=== PATIENT | female | born 1925 | race Caucasian/White ===

== ENCOUNTER → 2017-03-02 | Outpatient (CLI) | payer MEDICARE, OTHER | END | disposition home or self-care (01) | LOC: GMAL 10:23 | PROVIDERS: ATTEND Family Medicine | DX: D51.3 Other dietary vitamin B12 deficiency anemia (principal); E55.9 Vitamin D deficiency, unspecified ==

== ENCOUNTER → 2017-04-16 | Outpatient (CLI) | payer MEDICARE, OTHER | END | disposition home or self-care (01) | LOC: LAB.O 16:27 | PROVIDERS: ATTEND Family Medicine | DX: R35.0 Frequency of micturition (principal) ==

== ENCOUNTER → 2017-04-23 | Outpatient (CLI) | payer MEDICARE, OTHER ==
--- NOTE | 2017-04-23 11:39 | CT ---
Procedure: CT HEAD WITHOUT IV CONTRAST Exam Date: 04/23/2017 11:01 AM CDT Ordering Provider: CANDE OSPINA Clinical Indication: HEADACHE Comparison: None Technique: CT images of the head were obtained without contrast administration. Findings: There is no acute cortical infarction, hemorrhage, midline shift, mass effect, or hydrocephalus. 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 Global parenchymal volume loss is present. The calvaria and skull base are unremarkable. Paranasal sinuses and mastoid air cells are well aerated. Impression: No acute cortical infarction or hemorrhage. Senescent changes. Electronically signed by: Mikayla Clancy MD 04/23/2017 11:38 AM CDT
== END | disposition home or self-care (01) ==
LOC: CT 10:55
PROVIDERS: ATTEND Family Medicine
DX: G44.209 Tension-type headache, unspecified, not intractable (principal)

== ENCOUNTER → 2017-05-11 | Outpatient (CLI) | payer MEDICARE, OTHER | END | disposition home or self-care (01) | LOC: GMAL 14:26 | PROVIDERS: ATTEND Family Medicine | DX: N39.0 Urinary tract infection, site not specified (principal) ==